=== PATIENT | female | born 1990 | race Two or more races ===

== ENCOUNTER 2021-09-01 22:47 | Inpatient (IN) | payer OTHER ==
[~2021-09-01] VITALS: Ht 154.9 cm; Wt 2.7 kg
[2021-09-02] MEDS ORDERED: FAMOTIDINE20 MG (08:30)
[2021-09-02] MEDS ORDERED: PANTOPRAZOLE SO20 MG (08:30)
[2021-09-05] MEDS ORDERED: DOCUSATE SODIU100 MG PO (08:23)
[2021-09-05] MEDS ORDERED: ACETAMINOPHEN-1 EAC2 PO (08:23)
[2021-09-05] MEDS ORDERED: IBU600 MG PO (08:24)
== END 2021-09-05 13:51 | disposition home or self-care (01) | DRG 788 ==
LOC: LDR 22:47 → OB/GYN 22:47 → O/R 09-02 13:29 → OB/GYN 09-02 15:31
PROVIDERS: ADMIT Obstetrics & Gynecology; ATTEND Obstetrics & Gynecology
PROC: 4A1HXCZ Monitoring of Products of Conception, Cardiac Rate, External Approach (ICD-10-PCS; 2021-09-01)
PROC: BY4FZZZ Ultrasonography of Third Trimester, Single Fetus (ICD-10-PCS; 2021-09-02)
PROC: 10D00Z1 Extraction of Products of Conception, Low, Open Approach (ICD-10-PCS; principal; 2021-09-02 12:15)
DX: O32.2XX0 Maternal care for transverse and oblique lie, not applicable or unspecified (principal); Z3A.37 37 weeks gestation of pregnancy; Z37.0 Single live birth; Z20.822 Contact with and (suspected) exposure to COVID-19

== ENCOUNTER 2021-10-09 07:46 | Day surgery (SDC) | payer OTHER ==
[~2021-10-09 07:46] MED LIST: ACETAMINOPHEN-1 EAC2 PO; DOCUSATE SODIU100 MG PO; FAMOTIDINE20 MG; IBU600 MG PO; PANTOPRAZOLE SO20 MG
[2021-10-09] MEDS ORDERED: ACETAMINOPHEN-1 EAC2 PO (13:48)
== END 2021-10-09 17:30 | disposition home or self-care (01) ==
LOC: CIR.AMB 07:46
PROVIDERS: ATTEND Obstetrics & Gynecology
DX: Z30.2 Encounter for sterilization (principal); J45.909 Unspecified asthma, uncomplicated; E66.01 Morbid (severe) obesity due to excess calories